=== PATIENT | male | born 1945 | race Caucasian/White ===

== ENCOUNTER 2018-01-04 21:08 | Inpatient (IN) | payer MEDICARE, OTHER ==
[~2018-01-04] VITALS: Ht 162.6 cm; Wt 75.3 kg
[~2018-01-04 21:08] MED LIST: AMLO2.5T2 PO; ASPI-611 PO; CALC0.253 PO; CARV12.5 PO; ERGO500041 PO; FENO145T36 PO; FURO-150 PO; INSU100I8 SQ; LANTUS SUBCUT; LOSA100T28 PO
[2018-01-04] MEDS ORDERED: nitroGLYCERIN 0.4mg SUBLingual tab SL PRN (21:15)
[2018-01-04] MEDS ORDERED: nitroGLYCERIN 0.4mg/hour patch TD ONE (21:15)
[2018-01-04 21:40] LABS: ABG BASE EXCESS -5.2 mmol/L (-2.0-3.0); ABG HCO3 19.2 mmol/L (22.0-26.0); ABG OXYGEN SATURATION 98.3 % (95-98); ABG PCO2 (T) 31.8 mmHg (35.0-48.0); ABG PH (T) 7.396 (7.350-7.450); FCOHb 0.1 % (0.5-1.5); FMetHb 0.1 % (0.3-1.12); FO2Hb 98.1 % (94-100); MINUTE VOLUME 24 L/min; RESPIRATORY RATE 12 b/min; RESPIRATORY RATE (OBSERVED) 33 b/min; TIDAL VOLUME 720 mL; TOTAL HEMOGLOBIN 9.3 G/dl (14.0-18.0)
[2018-01-04 21:45] LABS: BASOPHILS # (AUTO) 0.1 X10'3 (0-0.2); BASOPHILS % (AUTO) 0.8 % (0-1); EOSINOPHILS # (AUTO) 1.3 X10'3 (0-0.9); EOSINOPHILS % (AUTO) 8.1 % (0-6); HEMATOCRIT 26.7 % (42.0-52.0); HEMOGLOBIN 8.7 g/dl (14.0-17.9); LYMPHOCYTES # (AUTO) 1.3 X10'3 (1.1-4.8); LYMPHOCYTES % (AUTO) 7.8 % (21-51); MEAN CORPUSCULAR HGB CONC 32.7 % (33.0-36.5); MEAN CORPUSCULAR VOLUME 82.6 FL (78-98); MEAN PLATELET VOLUME 8.2 FL (7.4-10.4); MONOCYTES # (AUTO) 0.8 X10'3 (0-0.9); MONOCYTES % (AUTO) 4.6 % (2-12); NEUTROPHILS # (AUTO) 12.8 X10'3 (1.8-7.7); NEUTROPHILS % (AUTO) 78.7 % (42-75); PLATELET COUNT 436 X10'3 (140-440); RED BLOOD COUNT 3.24 X10'6 (4.70-6.10); WHITE BLOOD COUNT 16.2 X10'3 (4.5-11.0)
[2018-01-04] MEDS ORDERED: CefTRIAXone/D5W-Rocephin 1gm 50 ML IV ONE (21:45)
[2018-01-04 21:56] LABS: INR 1.6 INR; PARTIAL THROMBOPLASTIN TIME 37 SECONDS (22-32); PROTHROMBIN TIME 16.3 SECONDS (9.0-12.0)
[2018-01-04 22:01] LABS: ALANINE AMINOTRANSFERASE 22 U/L (12-78); ALBUMIN 3.3 G/DL (3.4-5.0); ALBUMIN/GLOBULIN RATIO 0.8 (1.1-1.5); ALKALINE PHOSPHATASE 53 IU/L (46-116); ANION GAP 15 (8-16); ASPARTATE AMINO TRANSFERASE 19 U/L (10-37); BILIRUBIN,TOTAL 0.4 MG/DL (0.1-1.0); BLOOD UREA NITROGEN 65 MG/DL (7-18); BUN/CREATININE RATIO 11.4 (5.4-32.0); CHLORIDE 103 MMOL/L (99-107); CREATININE 5.68 MG/DL (0.60-1.10); GLUCOSE 107 MG/DL (70-104); MAGNESIUM 2.3 MG/DL (1.5-2.4); PHOSPHORUS 5.5 MG/DL (2.3-4.5); POTASSIUM 3.6 MMOL/L (3.5-5.1); SODIUM 140 MMOL/L (135-145); TOTAL CARBON DIOXIDE 22.3 MMOL/L (24-32); TOTAL PROTEIN 7.6 G/DL (6.4-8.2); eGFR 10 ML/MIN
[2018-01-04] MEDS ORDERED: COU4T PO (22:09)
[2018-01-04] MEDS ORDERED: ERGO500041 PO (22:09)
[2018-01-04] MEDS ORDERED: ATOR40TA PO (22:09)
[2018-01-04] MEDS ORDERED: levoFLOXACIN-Levaquin 750MG/D5 150 ML IV STA (22:38)
[2018-01-04] MEDS ORDERED: morphine 4 MG/ML inj SYRINge IV PRN ×2 (22:40)
[2018-01-04] MEDS ORDERED: ondansetron/PF 4mg/2ml inj IV PRN (22:40)
[2018-01-04] MEDS ORDERED: acetaminophen 325mg tablet PO PRN (22:40)
[2018-01-04] MEDS ORDERED: methylPREDNISolone sod succ 125mg/2ml vial IV ONE (22:55)
[2018-01-04] MEDS: ipratropium/albuterol 3ml nebule NEB SCH (23:00)
[2018-01-04 23:41] LABS: ANISOCYTOSIS 2+; PLATELET ESTIMATE NORMAL; TOTAL CELLS COUNTED 100
[2018-01-05] MEDS ORDERED: methylPREDNISolone sod succ/PF 40mg inj. IV SCH (02:00)
[2018-01-05] MEDS: ipratropium/albuterol 3ml nebule NEB SCH (02:26)
[2018-01-05 03:19] LABS: BASOPHILS # (AUTO) 0.1 X10'3 (0-0.2); BASOPHILS % (AUTO) 0.4 % (0-1); EOSINOPHILS # (AUTO) 0.3 X10'3 (0-0.9); EOSINOPHILS % (AUTO) 2.1 % (0-6); HEMATOCRIT 22.9 % (42.0-52.0); HEMOGLOBIN 7.7 g/dl (14.0-17.9); LYMPHOCYTES # (AUTO) 0.2 X10'3 (1.1-4.8); LYMPHOCYTES % (AUTO) 1.6 % (21-51); MEAN CORPUSCULAR HEMOGLOBIN 27.6 PG (27.0-31.0); MEAN CORPUSCULAR HGB CONC 33.7 % (33.0-36.5); MEAN PLATELET VOLUME 8.1 FL (7.4-10.4); MONOCYTES # (AUTO) 0.3 X10'3 (0-0.9); MONOCYTES % (AUTO) 2.1 % (2-12); NEUTROPHILS % (AUTO) 93.8 % (42-75); PLATELET COUNT 349 X10'3 (140-440); RED CELL DISTRIBUTION WIDTH 17.9 % (11.5-14.5); WHITE BLOOD COUNT 14.9 X10'3 (4.5-11.0)
[2018-01-05 03:43] LABS: ALANINE AMINOTRANSFERASE 18 U/L (12-78); ALBUMIN 2.9 G/DL (3.4-5.0); ALBUMIN/GLOBULIN RATIO 0.8 (1.1-1.5); ALKALINE PHOSPHATASE 40 IU/L (46-116); ANION GAP 14 (8-16); ASPARTATE AMINO TRANSFERASE 16 U/L (10-37); BILIRUBIN,TOTAL 0.4 MG/DL (0.1-1.0); BLOOD UREA NITROGEN 64 MG/DL (7-18); BUN/CREATININE RATIO 11.1 (5.4-32.0); CALCIUM 8.7 MG/DL (8.5-10.1); CHLORIDE 103 MMOL/L (99-107); CREATININE 5.74 MG/DL (0.60-1.10); GLUCOSE 141 MG/DL (70-104); MAGNESIUM 2.3 MG/DL (1.5-2.4); PHOSPHORUS 5.1 MG/DL (2.3-4.5); POTASSIUM 4.4 MMOL/L (3.5-5.1); SODIUM 137 MMOL/L (135-145); TOTAL CARBON DIOXIDE 19.8 MMOL/L (24-32); TOTAL PROTEIN 6.6 G/DL (6.4-8.2); eGFR 10 ML/MIN
[2018-01-05] MEDS: insulin Lispro (HumaLOG) vial - multi-dose SQ SCH ×3 (07:00→16:47)
[2018-01-05 07:32] LABS: INR 1.8 INR; PROTHROMBIN TIME 18.7 SECONDS (9.0-12.0)
[2018-01-05] MEDS ORDERED: insulin glargine (Lantus) pen - multi-dose SQ SCH ×3 (08:00→21:00)
[2018-01-05] MEDS ORDERED: levoFLOXACIN-Levaquin 250mg/D5 50 ML IV SCH (08:00)
[2018-01-05] MEDS: losartan 50mg tablet PO SCH (09:50)
[2018-01-05] MEDS: amLODIPine 5mg tablet PO SCH ×2 (09:51→21:30)
[2018-01-05] MEDS: lactobacillus rhamnosus 10,000 MMU CELLS/CAPSULE PO SCH ×2 (09:51→20:00)
[2018-01-05] MEDS: fenofibrate 145mg tablet PO SCH (09:51)
[2018-01-05] MEDS: heparin, porcine 5000 units/ml vial SQ SCH ×2 (09:52→21:31)
[2018-01-05 12:16] VITALS: BP 163/57
[2018-01-05] MEDS ORDERED: dextrose 50%-water 50ml dispensing syringe IV PRN ×2 (13:35)
[2018-01-05] MEDS ORDERED: glucagon, human recombinant 1mg kit SUBCUT PRN (13:35)
[2018-01-05] MEDS ORDERED: dextrose ORAL solution 15 GM/59 ML bottle PO PRN (13:35)
[2018-01-05] MEDS: insulin Lispro (HumaLOG) vial - multi-dose SQ PRN ×3 (13:59→21:18)
[2018-01-05 15:00] VITALS: BP 157/63
[2018-01-05 15:14] LABS: HEMOGLOBIN A1C 6.4 % (4.5-6.2)
[2018-01-05 19:00] VITALS: BP 142/59
[2018-01-05] MEDS: ipratropium/albuterol 3ml nebule NEB PRN (20:05)
[2018-01-05] MEDS: insulin glargine (Lantus) pen - multi-dose SQ SCH (21:17)
[2018-01-05] MEDS: atorvastatin 20mg tablet PO SCH (21:29)
[2018-01-05] MEDS: warfarin 4mg tablet PO SCH (21:30)
[2018-01-05] MEDS: CefTRIAXone/D5W-Rocephin 1gm 50 ML IV SCH (21:32)
[2018-01-05] MEDS: azithromycin/NS 500mg/250ml 250 ML IV SCH (22:43)
[2018-01-05 23:00] VITALS: BP 170/68
[2018-01-06] MEDS: ipratropium/albuterol 3ml nebule NEB PRN (02:07)
[2018-01-06 03:00] VITALS: BP 188/73
[2018-01-06 05:12] LABS: BASOPHILS % (AUTO) 0.1 % (0-1); EOSINOPHILS # (AUTO) 0.4 X10'3 (0-0.9); HEMATOCRIT 25.2 % (42.0-52.0); HEMOGLOBIN 8.3 g/dl (14.0-17.9); LYMPHOCYTES # (AUTO) 0.5 X10'3 (1.1-4.8); LYMPHOCYTES % (AUTO) 2.6 % (21-51); MEAN CORPUSCULAR HEMOGLOBIN 27.5 PG (27.0-31.0); MEAN CORPUSCULAR HGB CONC 32.9 % (33.0-36.5); MEAN CORPUSCULAR VOLUME 83.5 FL (78-98); MEAN PLATELET VOLUME 8.7 FL (7.4-10.4); MONOCYTES # (AUTO) 1.3 X10'3 (0-0.9); MONOCYTES % (AUTO) 6.1 % (2-12); NEUTROPHILS # (AUTO) 18.7 X10'3 (1.8-7.7); NEUTROPHILS % (AUTO) 89.2 % (42-75); PLATELET COUNT 431 X10'3 (140-440); RED BLOOD COUNT 3.02 X10'6 (4.70-6.10)
[2018-01-06 05:27] LABS: PROTHROMBIN TIME 29.4 SECONDS (9.0-12.0)
[2018-01-06 06:00] VITALS: BP 156/63
[2018-01-06 06:01] LABS: ALANINE AMINOTRANSFERASE 19 U/L (12-78); ALBUMIN/GLOBULIN RATIO 0.7 (1.1-1.5); ALKALINE PHOSPHATASE 40 IU/L (46-116); ANION GAP 20 (8-16); ASPARTATE AMINO TRANSFERASE 12 U/L (10-37); BILIRUBIN,TOTAL 0.4 MG/DL (0.1-1.0); BLOOD UREA NITROGEN 81 MG/DL (7-18); BUN/CREATININE RATIO 13.9 (5.4-32.0); CALCIUM 8.3 MG/DL (8.5-10.1); CHLORIDE 98 MMOL/L (99-107); CREATININE 5.81 MG/DL (0.60-1.10); GLUCOSE 439 MG/DL (70-104); MAGNESIUM 2.3 MG/DL (1.5-2.4); PHOSPHORUS 5.9 MG/DL (2.3-4.5); POTASSIUM 4.3 MMOL/L (3.5-5.1); SODIUM 136 MMOL/L (135-145); TOTAL CARBON DIOXIDE 18.4 MMOL/L (24-32); TOTAL PROTEIN 7.2 G/DL (6.4-8.2); eGFR 10 ML/MIN
[2018-01-06] MEDS: fenofibrate 145mg tablet PO SCH (07:22)
[2018-01-06] MEDS: lactobacillus rhamnosus 10,000 MMU CELLS/CAPSULE PO SCH ×2 (07:22→21:17)
[2018-01-06] MEDS: amLODIPine 5mg tablet PO SCH ×2 (07:22→21:20)
[2018-01-06] MEDS: losartan 50mg tablet PO SCH (07:22)
[2018-01-06] MEDS: insulin Lispro (HumaLOG) vial - multi-dose SQ SCH ×3 (07:27→17:51)
[2018-01-06] MEDS: insulin glargine (Lantus) pen - multi-dose SQ SCH ×2 (07:32→21:31)
[2018-01-06] MEDS: heparin, porcine 5000 units/ml vial SQ SCH ×2 (07:35→21:21)
[2018-01-06] MEDS ORDERED: furosemide 10 MG/1 ML 10ml inj IV ONE (08:25)
[2018-01-06] MEDS: insulin Lispro (HumaLOG) vial - multi-dose SQ PRN ×2 (09:33→14:22)
[2018-01-06 11:10] VITALS: BP 133/57
[2018-01-06 15:00] VITALS: BP 157/54
[2018-01-06] MEDS: furosemide 10 MG/1 ML 10ml inj IV SCH (16:28)
[2018-01-06 19:00] VITALS: BP 128/59
[2018-01-06] MEDS: atorvastatin 20mg tablet PO SCH (21:18)
[2018-01-06] MEDS: CefTRIAXone/D5W-Rocephin 1gm 50 ML IV SCH (21:21)
[2018-01-06] MEDS: warfarin 4mg tablet PO SCH (21:22)
[2018-01-06] MEDS: azithromycin/NS 500mg/250ml 250 ML IV SCH (22:50)
[2018-01-06 23:00] VITALS: BP 128/59
[2018-01-07] MEDS: furosemide 10 MG/1 ML 10ml inj IV SCH ×2 (00:14→07:38)
[2018-01-07 03:00] VITALS: BP 130/62
[2018-01-07 05:14] LABS: BASOPHILS # (AUTO) 0.1 X10'3 (0-0.2); BASOPHILS % (AUTO) 0.8 % (0-1); EOSINOPHILS # (AUTO) 0.3 X10'3 (0-0.9); HEMATOCRIT 24.9 % (42.0-52.0); HEMOGLOBIN 8.4 g/dl (14.0-17.9); LYMPHOCYTES # (AUTO) 0.9 X10'3 (1.1-4.8); LYMPHOCYTES % (AUTO) 9.2 % (21-51); MEAN CORPUSCULAR HEMOGLOBIN 27.7 PG (27.0-31.0); MEAN CORPUSCULAR HGB CONC 33.6 % (33.0-36.5); MEAN CORPUSCULAR VOLUME 82.4 FL (78-98); MEAN PLATELET VOLUME 8.4 FL (7.4-10.4); MONOCYTES # (AUTO) 0.9 X10'3 (0-0.9); MONOCYTES % (AUTO) 8.8 % (2-12); NEUTROPHILS # (AUTO) 7.8 X10'3 (1.8-7.7); NEUTROPHILS % (AUTO) 78.2 % (42-75); PLATELET COUNT 433 X10'3 (140-440); RED BLOOD COUNT 3.02 X10'6 (4.70-6.10); RED CELL DISTRIBUTION WIDTH 18.1 % (11.5-14.5); WHITE BLOOD COUNT 9.9 X10'3 (4.5-11.0)
[2018-01-07 05:17] LABS: INR 2.7 INR; PROTHROMBIN TIME 26.8 SECONDS (9.0-12.0)
[2018-01-07 05:33] LABS: ALANINE AMINOTRANSFERASE 21 U/L (12-78); ALBUMIN 2.9 G/DL (3.4-5.0); ALBUMIN/GLOBULIN RATIO 0.7 (1.1-1.5); ALKALINE PHOSPHATASE 33 IU/L (46-116); ANION GAP 13 (8-16); ASPARTATE AMINO TRANSFERASE 18 U/L (10-37); BILIRUBIN,TOTAL 0.3 MG/DL (0.1-1.0); BLOOD UREA NITROGEN 81 MG/DL (7-18); BUN/CREATININE RATIO 13.5 (5.4-32.0); CALCIUM 8.5 MG/DL (8.5-10.1); CHLORIDE 103 MMOL/L (99-107); CREATININE 5.99 MG/DL (0.60-1.10); GLUCOSE 95 MG/DL (70-104); MAGNESIUM 2.3 MG/DL (1.5-2.4); PHOSPHORUS 6.3 MG/DL (2.3-4.5); POTASSIUM 3.7 MMOL/L (3.5-5.1); SODIUM 143 MMOL/L (135-145); TOTAL PROTEIN 7.1 G/DL (6.4-8.2); eGFR 9 ML/MIN
[2018-01-07 06:00] VITALS: BP 121/52
[2018-01-07 06:53] LABS: BASOPHILS % (MANUAL) 1 % (0-1); EOSINOPHILS % (MANUAL) 2 % (0-6); LYMPHOCYTES % (MANUAL) 10 % (21-51); MONOCYTES % (MANUAL) 6 % (2-12); NEUTROPHILS % (MANUAL) 80 % (42-75); TOTAL CELLS COUNTED 100
[2018-01-07 06:54] LABS: ANISOCYTOSIS 2+; NUCLEATED RED BLOOD CELLS 1 /100WBC (0-0); PLATELET ESTIMATE NORMAL; SMUDGE CELLS FEW
[2018-01-07] MEDS: insulin Lispro (HumaLOG) vial - multi-dose SQ SCH ×2 (07:00→12:00)
[2018-01-07] MEDS: dextrose ORAL solution 15 GM/59 ML bottle PO PRN ×2 (07:29→07:49)
[2018-01-07] MEDS: insulin glargine (Lantus) pen - multi-dose SQ SCH (07:36)
[2018-01-07] MEDS: losartan 50mg tablet PO SCH (07:38)
[2018-01-07] MEDS: amLODIPine 5mg tablet PO SCH (07:38)
[2018-01-07] MEDS: lactobacillus rhamnosus 10,000 MMU CELLS/CAPSULE PO SCH (07:38)
[2018-01-07] MEDS: fenofibrate 145mg tablet PO SCH (07:39)
[2018-01-07] MEDS: heparin, porcine 5000 units/ml vial SQ SCH (07:39)
[2018-01-07 11:00] VITALS: BP 127/60
[2018-01-07] MEDS ORDERED: AZIT250T PO (11:09)
[2018-01-07] MEDS ORDERED: FURO-149 PO (11:09)
== END 2018-01-07 14:08 | disposition home or self-care (01) | DRG 193 ==
LOC: ER 21:09 → ED HOLD 22:38 → PCU 3S 01-05 11:45 → CMPBEDREQ 01-06 19:50
PROVIDERS: ATTEND Internal Medicine Critical Care Medicine
PROC: 5A09357 Assistance with Respiratory Ventilation, Less than 24 Consecutive Hours, Continuous Positive Airway Pressure (ICD-10-PCS; principal; 2018-01-04)
PROC: 5A09357 Assistance with Respiratory Ventilation, Less than 24 Consecutive Hours, Continuous Positive Airway Pressure (ICD-10-PCS; 2018-01-05)
PROC: 3E1M39Z Irrigation of Peritoneal Cavity using Dialysate, Percutaneous Approach (ICD-10-PCS; 2018-01-05)
PROC: 5A09357 Assistance with Respiratory Ventilation, Less than 24 Consecutive Hours, Continuous Positive Airway Pressure (ICD-10-PCS; 2018-01-06)
PROC: 3E1M39Z Irrigation of Peritoneal Cavity using Dialysate, Percutaneous Approach (ICD-10-PCS; 2018-01-06)
PROC: 3E1M39Z Irrigation of Peritoneal Cavity using Dialysate, Percutaneous Approach (ICD-10-PCS; 2018-01-07)
DX: J18.1 Lobar pneumonia, unspecified organism (principal); J96.00 Acute respiratory failure, unspecified whether with hypoxia or hypercapnia; N18.6 End stage renal disease; I16.1 Hypertensive emergency; I12.0 Hypertensive chronic kidney disease with stage 5 chronic kidney disease or end stage renal disease; J44.0 Chronic obstructive pulmonary disease with (acute) lower respiratory infection; E87.70 Fluid overload, unspecified; D63.8 Anemia in other chronic diseases classified elsewhere; E11.22 Type 2 diabetes mellitus with diabetic chronic kidney disease; Z99.2 Dependence on renal dialysis; Z88.2 Allergy status to sulfonamides; Z88.1 Allergy status to other antibiotic agents; Z88.8 Allergy status to other drugs, medicaments and biological substances; Z79.82 Long term (current) use of aspirin; Z79.2 Long term (current) use of antibiotics; Z79.01 Long term (current) use of anticoagulants; Z79.4 Long term (current) use of insulin; Z79.899 Other long term (current) drug therapy
CPT/HCPCS: 36415; 36600; 71045; 80053; 82803; 82948; 83036; 83605; 83735; 84100; 84484; 85018; 85025; 85610; 85730; 87040; 87070; 90935; 93005; 94640; 94660; 96365; 99291; J0456; J0696; J1644; J1815; J1940; J1956; J2270; J2930; J7030

== ENCOUNTER 2022-11-02 21:09 | Inpatient (IN) | payer BC, MEDICARE, OTHER ==
[~2022-11-02] VITALS: Ht 167.6 cm; Wt 75.0 kg
[~2022-11-02 21:09] MED LIST changes: -ASPI-611 PO; +ATOR40TA PO; -CALC0.253 PO; -CARV12.5 PO; +COU4T PO; +FENO145T26 PO; -FENO145T36 PO; -FURO-150 PO; +FURO80TA87 PO; -LOSA100T28 PO; +LOSA100T57 PO
[2022-11-02 23:38] LABS: APTT 37 SECONDS (22-32)
[2022-11-02 23:42] LABS: ALANINE AMINOTRANSFERASE 17 U/L (12-78); ALBUMIN 3.5 G/DL (3.4-5.0); ALKALINE PHOSPHATASE 74 IU/L (46-116); ANION GAP 9 (8-16); ASPARTATE AMINO TRANSFERASE 13 U/L (10-37); BILIRUBIN,TOTAL 0.6 MG/DL (0.1-1.0); BLOOD UREA NITROGEN 39 MG/DL (7-18); CALCIUM 9.2 MG/DL (8.5-10.1); CHLORIDE 105 MMOL/L (99-107); CREATININE 1.22 MG/DL (0.60-1.10); GLUCOSE 200 MG/DL (70-104); SODIUM 136 MMOL/L (135-145); TOTAL CARBON DIOXIDE 22.3 MMOL/L (24-32); TOTAL PROTEIN 6.9 G/DL (6.4-8.2); eGFR 57 ML/MIN
[2022-11-02 23:49] LABS: BASOPHILS % (AUTO) 0.4 % (0-1); EOSINOPHILS # (AUTO) 0.1 X10'3 (0-0.9); EOSINOPHILS % (AUTO) 0.7 % (0-6); HEMATOCRIT 35.1 % (42.0-52.0); HEMOGLOBIN 11.2 g/dl (14.0-17.9); LYMPHOCYTES # (AUTO) 0.6 X10'3 (1.1-4.8); LYMPHOCYTES % (AUTO) 5.2 % (21-51); MEAN CORPUSCULAR HEMOGLOBIN 26.1 PG (27.0-31.0); MEAN CORPUSCULAR HGB CONC 31.9 g/dL (33.0-36.5); MEAN CORPUSCULAR VOLUME 81.8 FL (78-98); MEAN PLATELET VOLUME 9.5 FL (7.4-10.4); MONOCYTES # (AUTO) 0.9 X10'3 (0-0.9); NEUTROPHILS # (AUTO) 9.4 X10'3 (1.8-7.7); NEUTROPHILS % (AUTO) 85.7 % (42-75); PLATELET COUNT 282 X10'3 (140-440); RED CELL DISTRIBUTION WIDTH 16.3 % (11.5-14.5); WHITE BLOOD COUNT 10.9 X10'3 (4.5-11.0)
[2022-11-03] MEDS ORDERED: furosemide 10 MG/1 ML 10ml inj IV ONE
[2022-11-03 00:42] LABS: ANISOCYTOSIS 1+; ELLIPTOCYTES FEW; PLATELET ESTIMATE NORMAL
[2022-11-03 00:43] LABS: ROULEAUX 1+
[2022-11-03] MEDS ORDERED: mag hydrox/Alum hydrox/simeth 30ml oral suspension PO PRN (02:25)
[2022-11-03] MEDS ORDERED: diphenhydrAMINE 50 mg/ml inj IV PRN (02:25)
[2022-11-03] MEDS ORDERED: acetaminophen 650mg rectal suppository RC PRN (02:25)
[2022-11-03] MEDS ORDERED: ondansetron/PF 4mg/2ml inj IV PRN (02:25)
[2022-11-03] MEDS ORDERED: bisacodyl 10mg suppository rectal RC PRN (02:25)
[2022-11-03] MEDS ORDERED: diphenhydrAMINE 25mg capsule PO PRN (02:25)
[2022-11-03] MEDS ORDERED: morphine 2 MG/ML inj. syringe IV PRN ×2 (02:25)
[2022-11-03] MEDS ORDERED: HYDROcodone/acetaminophen 10/325mg tab PO PRN (02:25)
[2022-11-03] MEDS ORDERED: ipratropium/albuterol 3ml nebule NEB PRN (02:25)
[2022-11-03] MEDS ORDERED: magnesium hydroxide 30ml (MOM) UD suspension PO PRN (02:25)
[2022-11-03] MEDS ORDERED: HYDROcodone/acetaminophen 5mg/325mg tablet PO PRN (02:25)
[2022-11-03] MEDS ORDERED: acetaminophen 325mg tablet PO PRN ×2 (02:25)
[2022-11-03] MEDS ORDERED: ondansetron 4mg rapidly disintigrating tab PO PRN (02:25)
[2022-11-03] MEDS ORDERED: glucagon, human recombinant 1mg kit SUBCUT PRN (02:35)
[2022-11-03] MEDS ORDERED: MESSAGE TO PHARMACY PO ONE (02:35)
[2022-11-03] MEDS ORDERED: dextrose 50%-water 50ml dispensing syringe IV PRN ×2 (02:35)
[2022-11-03] MEDS ORDERED: DEXTROSE 15 GM of carb/4 tabs (each vial/BOTTLE has 4 tablets) PO PRN ×2 (02:35)
[2022-11-03] MEDS ORDERED: insulin Lispro (HumaLOG) vial - multi-dose SQ SCH (02:35)
[2022-11-03] MEDS ORDERED: PRAV10TA39 PO (02:47)
[2022-11-03] MEDS ORDERED: SPIR25TA5 PO (02:47)
[2022-11-03 03:05] LABS: D-DIMER 1.56 MG/L FEU (0-0.50)
[2022-11-03 03:05] LABS: CLARITY,URINE CLEAR (Clear); COLOR,URINE STRAW (Yellow); GLUCOSE, URINE NEGATIVE (Neg); KETONES,URINE NEGATIVE (Neg); LEUKOCYTE ESTERASE ,URINE NEGATIVE (Neg); NITRITES, URINE NEGATIVE (Neg); OCCULT BLOOD,URINE NEGATIVE (Neg); PROTEIN,URINE NEGATIVE (Neg); UROBILINOGEN,URINE 0.2 E.U/dL (0.2-1.0)
[2022-11-03 03:07] LABS: UA COLLECTION TYPE CLN CATCH MIDSTREAM
[2022-11-03 03:09] LABS: MAGNESIUM 1.9 MG/DL (1.5-2.4); PHOSPHORUS 3.6 MG/DL (2.3-4.5)
[2022-11-03 03:14] LABS: HEMOGLOBIN A1C 8.5 % (4.5-6.2)
[2022-11-03] MEDS ORDERED: TACR1CAP PO ×2 (04:15)
[2022-11-03] MEDS ORDERED: MYCO500T PO (04:15)
[2022-11-03] MEDS ORDERED: AMLO5TAB PO (04:15)
[2022-11-03] MEDS: normal saline 1000ml 1,000 ML IV SCH (04:33)
[2022-11-03] MEDS: pantoprazole 40mg Tablet.DR PO SCH (06:48)
[2022-11-03] MEDS: docusate sod 100mg capsule PO SCH ×2 (06:48→19:56)
--- NOTE | 2022-11-03 07:17 | NUR ---
RN gave nurse report to ABDIAS Pritchard @ [id number]. Pt is stable. VS WNL. Will transfer pt to room 3012B.
[2022-11-03 07:30] VITALS: BP 116/63
[2022-11-03] MEDS ORDERED: insulin glargine (Lantus) pen - multi-dose SQ SCH ×2 (08:00→21:00)
[2022-11-03] MEDS: nitroGLYCERIN 0.4mg/hour patch TD SCH (08:00)
[2022-11-03] MEDS ORDERED: furosemide 10 MG/1 ML 10ml inj IV SCH ×3 (08:00→20:00)
--- NOTE | 2022-11-03 09:00 | NUR ---
late entry: notified Dr. Barrios that pt's brought all his medications from home and gave them to him. Dr. Barrios stated that he was glad that his family is so involved with his care. I explained to the pt and family that we cannot do that. we will dispense the medications while he is here in the hospital.
--- NOTE | 2022-11-03 10:00 | NUR ---
sent to [facility]: [id number] Kitchen: pt arguing about lasix. scheduled for 0800 and 1999. pt refusing to take at night. Francheska CALERO [id number]
[2022-11-03 11:00] VITALS: BP 120/68
--- NOTE | 2022-11-03 13:00 | NUR ---
sent to [facility]: [id number] Kitchen: pt does not want to follow the humalog sliding scale. He is refusing this. He only wants 40 units of lantus in the morning. Requesting an order for that please. thank you.
[2022-11-03] MEDS ORDERED: insulin glargine (Lantus) pen - multi-dose SQ ONE (14:00)
[2022-11-03] MEDS: furosemide 40mg/4ml inj IV SCH (14:57)
[2022-11-03 15:00] VITALS: BP 131/73
[2022-11-03] MEDS: mycophenolate mofetil 250mg capsule PO SCH (19:56)
[2022-11-03] MEDS: tacrolimus anhydrous 1mg capsule PO SCH (19:56)
[2022-11-03] MEDS: losartan 50mg tablet PO SCH (19:57)
[2022-11-03] MEDS: amLODIPine 5mg tablet PO SCH (19:57)
[2022-11-03] MEDS: CefTRIAXone/D5W-Rocephin 1gm 50 ML IV SCH (20:12)
--- NOTE | 2022-11-03 20:22 | NUR ---
BG 243. PATIENT STILL REFUSING HUMALOG PROTOCOL. EDUCATED PATIENT REGARDING PROTOCOL AND COVERAGE. INSULIN COVERAGE CALCULATED AT 11 UNITS OF HUMALOG PER PROTOCOL. PT STATES" THAT IS TOO MUCH INSULIN. IM NOT TAKING THAT." MD AWARE.
[2022-11-03] MEDS ORDERED: temazepam 15mg capsule PO PRN (21:00)
[2022-11-03 21:13] VITALS: BP 119/68
[2022-11-03 22:00] VITALS: BP 105/41
[2022-11-04 02:00] VITALS: BP 116/67
--- NOTE | 2022-11-04 03:42 | NUR ---
PT STATES HE FEELS SHAKY AND REQUESTS TO HAVE HIS BLOOD SUGAR CHECKED. BLOOD SUGAR RESULT WAS 62. PATIENT GIVEN 24GM OF SUGAR VIA TWO ORANGE JUICES.
--- NOTE | 2022-11-04 04:00 | NUR ---
BLOOD SUGAR RECHECK 113.
[2022-11-04 06:00] VITALS: BP 93/53
[2022-11-04 06:57] LABS: BASOPHILS % (AUTO) 0.7 % (0-1); EOSINOPHILS # (AUTO) 0.3 X10'3 (0-0.9); EOSINOPHILS % (AUTO) 4.6 % (0-6); HEMATOCRIT 35.1 % (42.0-52.0); HEMOGLOBIN 11.5 g/dl (14.0-17.9); LYMPHOCYTES # (AUTO) 0.7 X10'3 (1.1-4.8); LYMPHOCYTES % (AUTO) 12.1 % (21-51); MEAN CORPUSCULAR HEMOGLOBIN 26.6 PG (27.0-31.0); MEAN CORPUSCULAR HGB CONC 32.8 g/dL (33.0-36.5); MEAN CORPUSCULAR VOLUME 80.9 FL (78-98); MONOCYTES # (AUTO) 0.8 X10'3 (0-0.9); MONOCYTES % (AUTO) 12.6 % (2-12); NEUTROPHILS # (AUTO) 4.2 X10'3 (1.8-7.7); PLATELET COUNT 275 X10'3 (140-440); RED BLOOD COUNT 4.34 X10'6 (4.70-6.10); RED CELL DISTRIBUTION WIDTH 16.5 % (11.5-14.5)
[2022-11-04 07:05] LABS: ALANINE AMINOTRANSFERASE 14 U/L (12-78); ALBUMIN 3.3 G/DL (3.4-5.0); ALKALINE PHOSPHATASE 65 IU/L (46-116); ANION GAP 9 (8-16); ASPARTATE AMINO TRANSFERASE 13 U/L (10-37); BILIRUBIN,TOTAL 0.4 MG/DL (0.1-1.0); BLOOD UREA NITROGEN 45 MG/DL (7-18); BUN/CREATININE RATIO 27.8 (5.4-32.0); CALCIUM 9.2 MG/DL (8.5-10.1); CHLORIDE 101 MMOL/L (99-107); CHOL/HDL RATIO 4.7 (0.00-4.99); CHOLESTEROL 192 MG/DL (0-200); CREATININE 1.62 MG/DL (0.60-1.10); GLUCOSE 130 MG/DL (70-104); HDL CHOLESTEROL 41 MG/DL (35-60); LDL CHOLESTEROL 126 MG/DL (50-100); POTASSIUM 4.6 MMOL/L (3.5-5.1); SODIUM 136 MMOL/L (135-145); TOTAL CARBON DIOXIDE 25.7 MMOL/L (24-32); TOTAL PROTEIN 6.5 G/DL (6.4-8.2); TRIGLYCERIDES 130 MG/DL (20-135); eGFR 41 ML/MIN
[2022-11-04] MEDS: CefTRIAXone/D5W-Rocephin 1gm 50 ML IV SCH (07:53)
[2022-11-04] MEDS: tacrolimus anhydrous 1mg capsule PO SCH ×2 (08:00→20:46)
[2022-11-04] MEDS: docusate sod 100mg capsule PO SCH (08:00)
[2022-11-04] MEDS ORDERED: azithromycin/NS 500mg/250ml 250 ML IV SCH (08:00)
[2022-11-04] MEDS: nitroGLYCERIN 0.4mg/hour patch TD SCH (08:00)
[2022-11-04] MEDS: furosemide 40mg/4ml inj IV SCH ×2 (08:01→10:50)
[2022-11-04] MEDS: atorvastatin 10mg tablet PO SCH (08:01)
[2022-11-04] MEDS: pantoprazole 40mg Tablet.DR PO SCH (08:01)
[2022-11-04] MEDS: insulin glargine (Lantus) pen - multi-dose SQ SCH (08:05)
[2022-11-04] MEDS: mycophenolate mofetil 250mg capsule PO SCH ×2 (08:06→20:43)
[2022-11-04 10:00] VITALS: BP 110/55
--- NOTE | 2022-11-04 11:36 | NUR ---
Per EMR pt with T2DM, fairly well controlled for geriatric age with A1c 8.5%. Written DM education with RD contact information placed in patient's chart. Will remain available. Addendum: 11/04/22 at [address] Amended: Links added.
[2022-11-04 15:00] VITALS: BP 130/58
[2022-11-04 18:00] VITALS: BP 152/65
[2022-11-04] MEDS: losartan 50mg tablet PO SCH (20:46)
[2022-11-04] MEDS: amLODIPine 5mg tablet PO SCH (20:46)
[2022-11-04 23:36] VITALS: BP 152/65
[2022-11-05] VITALS (13 sets, daily range): BP systolic 100–150; BP diastolic 46–91
[2022-11-05] MEDS: normal saline 1000ml 1,000 ML IV SCH (02:25)
[2022-11-05 06:37] LABS: EOSINOPHILS # (AUTO) 0.2 X10'3 (0-0.9); LYMPHOCYTES # (AUTO) 0.5 X10'3 (1.1-4.8); NEUTROPHILS # (AUTO) 5.7 X10'3 (1.8-7.7); WHITE BLOOD COUNT 7.2 X10'3 (4.5-11.0)
[2022-11-05 06:39] LABS: BASOPHILS % (AUTO) 0.5 % (0-1); EOSINOPHILS % (AUTO) 3.1 % (0-6); HEMATOCRIT 35.6 % (42.0-52.0); HEMOGLOBIN 11.5 g/dl (14.0-17.9); LYMPHOCYTES % (AUTO) 7.5 % (21-51); MEAN CORPUSCULAR HEMOGLOBIN 26.4 PG (27.0-31.0); MEAN CORPUSCULAR HGB CONC 32.4 g/dL (33.0-36.5); MEAN CORPUSCULAR VOLUME 81.4 FL (78-98); MEAN PLATELET VOLUME 8.7 FL (7.4-10.4); MONOCYTES # (AUTO) 0.7 X10'3 (0-0.9); MONOCYTES % (AUTO) 10.3 % (2-12); NEUTROPHILS % (AUTO) 78.6 % (42-75); PLATELET COUNT 293 X10'3 (140-440); RED BLOOD COUNT 4.38 X10'6 (4.70-6.10); RED CELL DISTRIBUTION WIDTH 16.4 % (11.5-14.5)
[2022-11-05 06:47] LABS: ALANINE AMINOTRANSFERASE 15 U/L (12-78); ALBUMIN 3.3 G/DL (3.4-5.0); ALBUMIN/GLOBULIN RATIO 1.1 (1.1-1.5); ALKALINE PHOSPHATASE 62 IU/L (46-116); ANION GAP 9 (8-16); ASPARTATE AMINO TRANSFERASE 17 U/L (10-37); BILIRUBIN,TOTAL 0.3 MG/DL (0.1-1.0); BLOOD UREA NITROGEN 52 MG/DL (7-18); BUN/CREATININE RATIO 25.2 (5.4-32.0); CALCIUM 8.7 MG/DL (8.5-10.1); CHLORIDE 101 MMOL/L (99-107); CREATININE 2.06 MG/DL (0.60-1.10); GLUCOSE 244 MG/DL (70-104); POTASSIUM 5.3 MMOL/L (3.5-5.1); SODIUM 135 MMOL/L (135-145); TOTAL CARBON DIOXIDE 25.4 MMOL/L (24-32); TOTAL PROTEIN 6.4 G/DL (6.4-8.2); eGFR 31 ML/MIN
[2022-11-05] MEDS: insulin glargine (Lantus) pen - multi-dose SQ SCH (08:00)
[2022-11-05] MEDS: atorvastatin 10mg tablet PO SCH (08:10)
[2022-11-05] MEDS: pantoprazole 40mg Tablet.DR PO SCH (08:10)
[2022-11-05] MEDS: mycophenolate mofetil 250mg capsule PO SCH ×2 (08:11→20:27)
[2022-11-05] MEDS: furosemide 40mg/4ml inj IV SCH (08:11)
[2022-11-05] MEDS: CefTRIAXone/D5W-Rocephin 1gm 50 ML IV SCH (08:12)
[2022-11-05] MEDS: tacrolimus anhydrous 1mg capsule PO SCH ×2 (08:12→20:28)
[2022-11-05] MEDS ORDERED: midazolam 1 mg/ML 2ml injection ONE (13:19)
[2022-11-05] MEDS ORDERED: iohexol 350 MG/ML 50ML vial IV ONE (13:19)
[2022-11-05] MEDS ORDERED: heparin 1,000unit/ml 10ml vial 10 ML ONE ×2 (13:19→14:18)
[2022-11-05] MEDS ORDERED: LIDOcaine 1% 30ml preserv. free vial ONE (13:19)
[2022-11-05] MEDS ORDERED: fentaNYL/PF 50MCG/1 ML 2ML syringe ONE (13:19)
[2022-11-05] MEDS ORDERED: DOBUTamine-DoBUTrex 500mg/D5W 250 ML IV ONE (13:19)
[2022-11-05] MEDS ORDERED: iohexol 350MG/ML 100ml bottle IV ONE (13:20)
[2022-11-05] MEDS ORDERED: amiodarone 150mg/dext, iso-os 100 ML IV ONE ×2 (15:00→15:30)
[2022-11-05] MEDS ORDERED: HYDROcodone/acetaminophen 10/325mg tab PO PRN (15:25)
[2022-11-05] MEDS ORDERED: HYDROcodone/acetaminophen 5mg/325mg tablet PO PRN (15:25)
[2022-11-05] MEDS ORDERED: ondansetron/PF 4mg/2ml inj IV PRN (15:25)
[2022-11-05] MEDS ORDERED: normal saline 1000ml 1,000 ML IV SCH (15:25)
[2022-11-05] MEDS ORDERED: proCHLORperazine 10 MG/2 ml inj IV PRN (15:25)
[2022-11-05] MEDS: amiodarone 450 MG in Dext 5% 250ml IV soln IV SCH ×2 (16:04→23:30)
[2022-11-05] MEDS: amLODIPine 5mg tablet PO SCH (20:29)
[2022-11-05] MEDS: losartan 50mg tablet PO SCH (20:30)
[2022-11-05] MEDS ORDERED: insulin Lispro (HumaLOG) vial - multi-dose SQ ONE (22:45)
[2022-11-06] VITALS: BP 136/64
[2022-11-06] MEDS: amiodarone 450 MG in Dext 5% 250ml IV soln IV SCH ×2 (01:30→07:00)
[2022-11-06 02:00] VITALS: BP 119/61
[2022-11-06 06:30] VITALS: BP 119/58
[2022-11-06 06:34] LABS: BASOPHILS # (AUTO) 0.1 X10'3 (0-0.2); BASOPHILS % (AUTO) 0.7 % (0-1); EOSINOPHILS # (AUTO) 0.5 X10'3 (0-0.9); EOSINOPHILS % (AUTO) 5.3 % (0-6); HEMATOCRIT 34.9 % (42.0-52.0); HEMOGLOBIN 11.1 g/dl (14.0-17.9); LYMPHOCYTES # (AUTO) 0.7 X10'3 (1.1-4.8); LYMPHOCYTES % (AUTO) 7.7 % (21-51); MEAN CORPUSCULAR HGB CONC 31.7 g/dL (33.0-36.5); MEAN CORPUSCULAR VOLUME 81.9 FL (78-98); MEAN PLATELET VOLUME 8.9 FL (7.4-10.4); MONOCYTES % (AUTO) 10.1 % (2-12); NEUTROPHILS # (AUTO) 7.4 X10'3 (1.8-7.7); NEUTROPHILS % (AUTO) 76.2 % (42-75); PLATELET COUNT 288 X10'3 (140-440); RED BLOOD COUNT 4.26 X10'6 (4.70-6.10); RED CELL DISTRIBUTION WIDTH 16.6 % (11.5-14.5); WHITE BLOOD COUNT 9.7 X10'3 (4.5-11.0)
[2022-11-06 07:07] LABS: ALANINE AMINOTRANSFERASE 15 U/L (12-78); ALBUMIN 3.5 G/DL (3.4-5.0); ALBUMIN/GLOBULIN RATIO 1.1 (1.1-1.5); ALKALINE PHOSPHATASE 58 IU/L (46-116); ANION GAP 10 (8-16); ASPARTATE AMINO TRANSFERASE 16 U/L (10-37); BILIRUBIN,TOTAL 0.5 MG/DL (0.1-1.0); BLOOD UREA NITROGEN 53 MG/DL (7-18); BUN/CREATININE RATIO 28.2 (5.4-32.0); CALCIUM 8.6 MG/DL (8.5-10.1); CHLORIDE 104 MMOL/L (99-107); CREATININE 1.88 MG/DL (0.60-1.10); GLUCOSE 150 MG/DL (70-104); POTASSIUM 4.8 MMOL/L (3.5-5.1); SODIUM 137 MMOL/L (135-145); TOTAL CARBON DIOXIDE 22.9 MMOL/L (24-32); TOTAL PROTEIN 6.7 G/DL (6.4-8.2); eGFR 35 ML/MIN
[2022-11-06] MEDS: atorvastatin 10mg tablet PO SCH (07:43)
[2022-11-06] MEDS: mycophenolate mofetil 250mg capsule PO SCH (07:44)
[2022-11-06] MEDS: pantoprazole 40mg Tablet.DR PO SCH (07:45)
[2022-11-06] MEDS: tacrolimus anhydrous 1mg capsule PO SCH (07:45)
[2022-11-06] MEDS: CefTRIAXone/D5W-Rocephin 1gm 50 ML IV SCH (07:46)
[2022-11-06] MEDS: furosemide 40mg/4ml inj IV SCH (07:46)
[2022-11-06] MEDS: insulin glargine (Lantus) pen - multi-dose SQ SCH (07:51)
[2022-11-06] MEDS ORDERED: amiodarone 200mg tablet PO SCH (08:00)
[2022-11-06 08:31] VITALS: BP 112/59
[2022-11-06] MEDS ORDERED: AZIT500T PO ×2 (09:35)
--- NOTE | 2022-11-06 10:41 | NUR ---
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
[2022-11-06 10:59] VITALS: BP 125/47
--- NOTE | 2022-11-06 11:35 | NUR ---
Paged Dr Belcher PAGER ID: [phone] MESSAGE: [phone] Yeni [id number] Hope there are medication conflicts in the discharge that need addressed before I can finalize the discharge.
[2022-11-06] MEDS ORDERED: AMIO200T67 PO (12:13)
--- NOTE | 2022-11-06 13:18 | NUR ---
Paged DR BOWLES PAGER ID: [phone] MESSAGE: [phone] Yeni [id number] Wallace Hope please call me back. There is an interaction between Azithromycin and Amiodarone. Causes prolonged QT. Do you want a different antibiotic for DC? Addendum: 11/06/22 at 1319 by Yeni Bills RN Received orders to DC Azithromycin and she will put in new orders for antibiotics.
[2022-11-06] MEDS ORDERED: CEPH250T PO (15:05)
== END 2022-11-06 12:50 | disposition home or self-care (01) | DRG 286 ==
LOC: ER 21:09 → ED HOLD 11-03 02:30 → EDBEDREQ 11-03 07:01 → PCU 3S 11-03 07:25
PROVIDERS: ADMIT Family Medicine; ATTEND Internal Medicine
PROC: 4A023N8 Measurement of Cardiac Sampling and Pressure, Bilateral, Percutaneous Approach (ICD-10-PCS; principal; 2022-11-05)
PROC: B2111ZZ Fluoroscopy of Multiple Coronary Arteries using Low Osmolar Contrast (ICD-10-PCS; 2022-11-05)
DX: I13.2 Hypertensive heart and chronic kidney disease with heart failure and with stage 5 chronic kidney disease, or end stage renal disease (principal); I50.23 Acute on chronic systolic (congestive) heart failure; J18.9 Pneumonia, unspecified organism; N18.6 End stage renal disease; J96.01 Acute respiratory failure with hypoxia; J44.0 Chronic obstructive pulmonary disease with (acute) lower respiratory infection; T86.19 Other complication of kidney transplant; N17.9 Acute kidney failure, unspecified; I25.10 Atherosclerotic heart disease of native coronary artery without angina pectoris; E11.22 Type 2 diabetes mellitus with diabetic chronic kidney disease; E11.65 Type 2 diabetes mellitus with hyperglycemia; D64.9 Anemia, unspecified; Y83.0 Surgical operation with transplant of whole organ as the cause of abnormal reaction of the patient, or of later complication, without mention of misadventure at the time of the procedure; E78.5 Hyperlipidemia, unspecified; I35.0 Nonrheumatic aortic (valve) stenosis; G89.4 Chronic pain syndrome; T46.2X5A Adverse effect of other antidysrhythmic drugs, initial encounter; Y92.89 Other specified places as the place of occurrence of the external cause; Z79.4 Long term (current) use of insulin; Z86.16 Personal history of COVID-19; Z95.5 Presence of coronary angioplasty implant and graft; Z99.2 Dependence on renal dialysis; Z88.2 Allergy status to sulfonamides; Z88.8 Allergy status to other drugs, medicaments and biological substances
CPT/HCPCS: 36415; 71045; 71250; 80053; 80061; 81003; 82948; 83036; 83735; 83880; 84100; 84484; 85008; 85025; 85379; 85610; 85730; 87081; 93005; 93306; 93460; 94760; 96374; 97116; 97161; 99152; 99153; 99285; C1725; C1751; C1760; C1769; C1894; G0378; J0282; J0456; J0696; J1250; J1644; J1815; J1940; J2250; J3010; J3490; J7030; J7060; J7507; J7517; Q9967

== ENCOUNTER 2022-11-26 05:56 | Day surgery (SDC) | payer BC ==
[~2022-11-26] VITALS: Ht 162.6 cm; Wt 74.3 kg
[2022-11-26] VITALS (8 sets, daily range): BP systolic 105–138; BP diastolic 43–66
[~2022-11-26 05:56] MED LIST changes: +AMIO200T61 PO; -AMLO2.5T2 PO; +AMLO5TAB16 PO; -ATOR40TA PO; -COU4T PO; -ERGO500041 PO; -FENO145T26 PO; +FURO40TA4 PO; -FURO80TA87 PO; +LOSA-416 PO; -LOSA100T57 PO; +MYCO500T PO; +PRAV10TA39 PO; +TACR1CAP PO; +WARF-55 PO
[2022-11-26] MEDS ORDERED: cefazolin 2gm/D5W 100mL 100 ML IV ONE (06:20)
[2022-11-26] MEDS ORDERED: FURO20TA4 PO (06:35)
[2022-11-26] MEDS ORDERED: FURO40TA4 PO (06:35)
[2022-11-26] MEDS ORDERED: PRED5TAB PO (06:35)
[2022-11-26 06:59] LABS: ALBUMIN 3.9 G/DL (3.4-5.0); ANION GAP 9 (8-16); BLOOD UREA NITROGEN 56 MG/DL (7-18); BUN/CREATININE RATIO 25.9 (5.4-32.0); CALCIUM 9.2 MG/DL (8.5-10.1); CHLORIDE 106 MMOL/L (99-107); CREATININE 2.16 MG/DL (0.60-1.10); GLUCOSE 126 MG/DL (70-104); MAGNESIUM 2.4 MG/DL (1.5-2.4); POTASSIUM 4.7 MMOL/L (3.5-5.1); SODIUM 140 MMOL/L (135-145); TOTAL CARBON DIOXIDE 25.1 MMOL/L (24-32); eGFR 30 ML/MIN
[2022-11-26 07:00] LABS: BASOPHILS # (AUTO) 0.1 X10'3 (0-0.2); BASOPHILS % (AUTO) 0.9 % (0-1); EOSINOPHILS # (AUTO) 0.1 X10'3 (0-0.9); EOSINOPHILS % (AUTO) 0.8 % (0-6); HEMATOCRIT 30.7 % (42.0-52.0); HEMOGLOBIN 9.7 g/dl (14.0-17.9); LYMPHOCYTES # (AUTO) 0.6 X10'3 (1.1-4.8); LYMPHOCYTES % (AUTO) 6.2 % (21-51); MEAN CORPUSCULAR HEMOGLOBIN 26.3 PG (27.0-31.0); MEAN CORPUSCULAR HGB CONC 31.7 g/dL (33.0-36.5); MEAN PLATELET VOLUME 9.6 FL (7.4-10.4); MONOCYTES % (AUTO) 10.6 % (2-12); NEUTROPHILS # (AUTO) 7.9 X10'3 (1.8-7.7); NEUTROPHILS % (AUTO) 81.5 % (42-75); PLATELET COUNT 277 X10'3 (140-440); RED BLOOD COUNT 3.69 X10'6 (4.70-6.10); RED CELL DISTRIBUTION WIDTH 17.8 % (11.5-14.5); WHITE BLOOD COUNT 9.7 X10'3 (4.5-11.0)
[2022-11-26] MEDS ORDERED: fentaNYL/PF 50MCG/1 ML 2ML syringe ONE (08:05)
[2022-11-26] MEDS ORDERED: midazolam 1 mg/ML 2ml injection ONE ×3 (08:05→09:25)
[2022-11-26] MEDS ORDERED: LIDOCAINE 2%/EPI 1:100,000 inj. Multi-dose 20 ML VIAL ONE (08:05)
[2022-11-26] MEDS ORDERED: vancomycin 1,000mg inj ONE (08:06)
[2022-11-26] MEDS ORDERED: iohexol 350 MG/ML 50ML vial IV ONE (08:06)
[2022-11-26] MEDS ORDERED: HYDROcodone/acetaminophen 5mg/325mg tablet PO PRN (10:55)
[2022-11-26] MEDS ORDERED: normal saline 1000ml 1,000 ML IV SCH (10:55)
[2022-11-26] MEDS ORDERED: HYDROcodone/acetaminophen 10/325mg tab PO PRN (10:55)
[2022-12-31] MEDS ORDERED: FURO-149 PO (10:37)
[2022-12-31] MEDS ORDERED: POTA-207 PO (10:37)
== END 2022-11-26 12:00 | disposition home or self-care (01) ==
LOC: SSTAY O 05:56
PROVIDERS: ATTEND Internal Medicine Cardiovascular Disease
DX: I44.7 Left bundle-branch block, unspecified (principal); I42.0 Dilated cardiomyopathy; I49.3 Ventricular premature depolarization; I50.22 Chronic systolic (congestive) heart failure; R00.1 Bradycardia, unspecified; E87.6 Hypokalemia; I48.0 Paroxysmal atrial fibrillation; E11.22 Type 2 diabetes mellitus with diabetic chronic kidney disease; I13.0 Hypertensive heart and chronic kidney disease with heart failure and stage 1 through stage 4 chronic kidney disease, or unspecified chronic kidney disease; N18.9 Chronic kidney disease, unspecified; E78.5 Hyperlipidemia, unspecified; K21.9 Gastro-esophageal reflux disease without esophagitis; G51.0 Bell's palsy; Z87.440 Personal history of urinary (tract) infections; Z98.890 Other specified postprocedural states; Z98.52 Vasectomy status; Z85.828 Personal history of other malignant neoplasm of skin; Z79.899 Other long term (current) drug therapy; Z79.4 Long term (current) use of insulin; Z82.49 Family history of ischemic heart disease and other diseases of the circulatory system
CPT/HCPCS: 33208; 33225; 36415; 71045; 80048; 82948; 83735; 85025; 85610; 93005; 99152; 99153; C1769; C1898; C1900; C2621; J2250; J3010; J3370; J7030; A4615; C1894; Q9967

== ENCOUNTER 2023-02-15 12:01 | Emergency (ER) | payer BC ==
[~2023-02-15 12:01] MED LIST changes: +AMI200T PO; -AMIO200T61 PO; +FURO-149 PO; -FURO40TA4 PO; -LOSA-416 PO; +epiNEPHrine 0.1mg/ml 10ml syringe ONE
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
== END 2023-02-15 19:16 ==
LOC: ER 12:01 → CANBEDREQ 14:44 → ER 19:16
DX: I46.9 Cardiac arrest, cause unspecified (principal); I51.9 Heart disease, unspecified; J44.9 Chronic obstructive pulmonary disease, unspecified; E11.9 Type 2 diabetes mellitus without complications; Z88.2 Allergy status to sulfonamides; Z88.8 Allergy status to other drugs, medicaments and biological substances; Z79.899 Other long term (current) drug therapy
CPT/HCPCS: 31500; 92950; 99285; J0171